=== PATIENT | male | born 1995 | race Caucasian/White ===

== ENCOUNTER 2021-01-16 12:19 | Emergency (ER) | payer OTHER ==
[~2021-01-16] VITALS: Ht 167.6 cm; Wt 59.0 kg
[2021-01-16] MEDS ORDERED: Hydrocortiso453.6 G1 TOP (12:58)
== END 2021-01-16 13:06 | disposition home or self-care (01) ==
LOC: ER 12:19
DX: R21 Rash and other nonspecific skin eruption (principal)
CPT/HCPCS: 99282